=== PATIENT | female | born 1970 | race Asian ===

== ENCOUNTER 2020-02-22 06:59 | Day surgery (SDC) | payer OTHER ==
[~2020-02-22] VITALS: Ht 152.4 cm; Wt 56.0 kg
[~2020-02-22 06:59] MED LIST: SODIUM CHLORIDE 0.9% 1,000 ML IV ONE; SODIUM CHLORIDE 0.9% 1,000 ML ONE
[2020-02-22] MEDS ORDERED: FentaNYL CITRATE-PF 100 MCG/2 ML VIAL ONE (07:58)
[2020-02-22] MEDS ORDERED: MIDAZOLAM HCL 2 MG/2 ML VIAL ONE (07:58)
[2020-02-22 08:12] LABS: GLUCOMETER DEV NAME(LOC) SDS.; GLUCOSE,POINT OF CARE 118 MG/DL (70-110)
[2020-02-22] MEDS ORDERED: MethylPREDNISolone SOD SUCC 125 MG/2 ML VIAL IVP ONE (09:00)
[2020-02-22] MEDS ORDERED: AMLO10TA7 PO (09:12)
[2020-02-22] MEDS ORDERED: DOCU-342 PO (09:12)
[2020-02-22] MEDS ORDERED: METF-960 PO (09:12)
[2020-02-22] MEDS ORDERED: GUAIF600 PO (09:12)
[2020-02-22] MEDS ORDERED: PRED10 PO (09:12)
[2020-02-22] MEDS ORDERED: HYDR30CR3 TP (09:12)
[2020-02-22] MEDS ORDERED: CLOT113C TP (09:12)
[2020-02-22] MEDS ORDERED: KETO45GE2 TP (09:12)
[2020-02-22] MEDS ORDERED: GABA-1181 PO ×2 (09:12)
[2020-02-22] MEDS ORDERED: POLY15DR29 OU (09:12)
[2020-02-22] MEDS ORDERED: SULI200T4 PO (09:12)
[2020-02-22] MEDS ORDERED: FLUT16H NASAL (09:12)
[2020-02-22] MEDS ORDERED: MONT10TA21 PO (09:12)
[2020-02-22] MEDS ORDERED: ESCI5SOL2 PO (09:12)
[2020-02-22] MEDS ORDERED: ACET-66 PO (09:12)
[2020-02-22] MEDS ORDERED: TRAM50TA4 PO (09:12)
[2020-02-22] MEDS ORDERED: ALBU8HFA IH (09:12)
[2020-02-22] MEDS ORDERED: HYDR-3290 PO (09:12)
[2020-02-22] MEDS ORDERED: BECL10.62 IH (09:12)
[2020-02-22] MEDS ORDERED: FAMO20 PO (09:12)
[2020-02-22] MEDS ORDERED: TRAZ-252 PO (09:12)
[2020-02-22] MEDS ORDERED: HYD25 PO (09:12)
[2020-02-22] MEDS ORDERED: CETI-193 PO (09:12)
[2020-02-22] MEDS ORDERED: HYDR-1475 PO (09:12)
[2020-02-22] MEDS ORDERED: ATOR10TA84 PO (09:12)
[2020-02-22] MEDS ORDERED: MethylPREDNISolone SOD SUCC 125 MG/2 ML VIAL ONE (09:42)
[2020-02-22] MEDS ORDERED: LIDOCAINE 4% 50 ML SOLUTION ONE (17:39)
[2020-02-22] MEDS ORDERED: ALBUTEROL SULFATE 2.5 MG/0.5 ML NEB SOLUTION NEB ONE (17:39)
[2020-02-22] MEDS ORDERED: LIDOCAINE 2% 30 ML JELLY ONE (17:39)
[2020-02-22] MEDS ORDERED: OXYGEN THERAPY IH SCH (20:00)
== END 2020-02-22 11:05 | disposition home or self-care (01) ==
LOC: SURGERY 06:59
PROVIDERS: ATTEND Internal Medicine Critical Care Medicine
DX: R05 Cough (principal); R91.1 Solitary pulmonary nodule; J34.89 Other specified disorders of nose and nasal sinuses; J98.8 Other specified respiratory disorders; B37.0 Candidal stomatitis; E11.9 Type 2 diabetes mellitus without complications; E78.00 Pure hypercholesterolemia, unspecified; I10 Essential (primary) hypertension; M19.90 Unspecified osteoarthritis, unspecified site; Z79.899 Other long term (current) drug therapy
CPT/HCPCS: 31623; 31624; 71045; 82962; 87015; 87070; 87101; 87205; 87206; 87220; 88108; 88312; J2250; J2930; J3010; J7030

== ENCOUNTER 2021-05-19 05:31 | Day surgery (SDC) | payer OTHER ==
[2021-05-17 14:38] LABS: COVID AG,FIA SOURCE NASOPHARYNGEAL
[~2021-05-19] VITALS: Ht 157.5 cm; Wt 54.5 kg
[~2021-05-19 05:31] MED LIST changes: +ACET-66 PO; +ALBU8HFA IH; +AMLO-258 PO; +ATOR10TA84 PO; +BECL10.62 IH; +CETI-193 PO; +CLOT113C TP; +DOCU-350 PO; +ESCI5SOL2 PO; +FAMO20 PO; +FLUT16H NASAL; +GABA-1181 PO; +GUAIF600 PO; +HYD25 PO; +HYDR-4396 PO; +HYDR25TA2 PO; +HYDR30CR3 TP; +KETO45GE2 TP; +METF-960 PO; +MONT-35 PO; +POLY15DR29 OU; +PRED10 PO; -SODIUM CHLORIDE 0.9% 1,000 ML IV ONE; -SODIUM CHLORIDE 0.9% 1,000 ML ONE; +SULI200T4 PO; +TRAM50TA4 PO; +TRAZ-252 PO
[2021-05-19] MEDS ORDERED: LIDOCAINE 2% 30 ML JELLY TP ONE (05:32)
[2021-05-19] MEDS ORDERED: LIDOCAINE 4% 50 ML SOLUTION TP ONE (05:32)
[2021-05-19] MEDS ORDERED: BENZOCAINE 20% 50 MCG/SPRAY 57 GM TP ONE (05:32)
[2021-05-19] MEDS ORDERED: ALBUTEROL SULFATE 2.5 MG/0.5 ML NEB SOLUTION NEB ONE (05:32)
[2021-05-19] MEDS ORDERED: SODIUM CHLORIDE 0.9% 0 ML ONE (05:44)
[2021-05-19] MEDS ORDERED: SODIUM CHLORIDE 0.9% 1,000 ML ONE (06:00)
[2021-05-19] MEDS ORDERED: SODIUM CHLORIDE 0.9% 1,000 ML IV ONE (06:30)
[2021-05-19 07:14] LABS: GLUCOMETER DEV NAME(LOC) SDS.; GLUCOSE,POINT OF CARE 122 MG/DL (70-110)
[2021-05-19] MEDS ORDERED: FentaNYL CITRATE PF 100 MCG/2 ML VIAL ONE (07:23)
[2021-05-19] MEDS ORDERED: MIDAZOLAM HCL 5 MG/ML VIAL ONE (07:23)
[2021-05-19] MEDS ORDERED: MethylPREDNISolone SOD SUCC 125 MG/2 ML VIAL ONE (08:57)
[2021-05-19] MEDS ORDERED: MethylPREDNISolone SOD SUCC 125 MG/2 ML VIAL IVP ONE (09:00)
[2021-05-19] MEDS ORDERED: OXYGEN THERAPY IH SCH (20:00)
== END 2021-05-19 10:54 | disposition home or self-care (01) ==
LOC: SURGERY 05:31
PROVIDERS: ATTEND Internal Medicine Critical Care Medicine
DX: J38.4 Edema of larynx (principal); B37.0 Candidal stomatitis; I10 Essential (primary) hypertension; Z98.890 Other specified postprocedural states; Z79.899 Other long term (current) drug therapy; Z90.710 Acquired absence of both cervix and uterus
CPT/HCPCS: 31623; 31624; 71045; 82962; 87015; 87070; 87101; 87205; 87206; 87220; 87426; 88108; 88184; 88185; 88312; C9803; J2250; J2930; J3010; J7030; J7613; Z7610